=== PATIENT | female | born 2000 | race African-American/Black ===

== ENCOUNTER 2021-10-04 22:31 | Outpatient (CLI) | payer OTHER, SELFPAY | END 2021-10-04 22:32 | disposition home or self-care (01) | LOC: AMB 10-17 08:35 | PROVIDERS: Visit Provider Family Medicine | DX: R55 Syncope and collapse (principal) | CPT/HCPCS: A0998 ==

== ENCOUNTER 2021-12-16 00:32 | Outpatient (CLI) | payer OTHER, SELFPAY | END 2021-12-16 00:33 | disposition home or self-care (01) | PROVIDERS: Visit Provider Family Medicine | DX: M54.2 Cervicalgia (principal); M79.602 Pain in left arm | CPT/HCPCS: A0425; A0429 ==